=== PATIENT | male | born 1970 | race Caucasian/White ===

== ENCOUNTER 2020-12-01 13:49 | Emergency (ER) | payer MEDICAID ==
[~2020-12-01] VITALS: Ht 157.5 cm; Wt 88.0 kg
[2020-12-01 13:57] VITALS: BP_SYST 160
[2020-12-01] MEDS ORDERED: FAMOTIDINE 20 MG TABLET PO ONE (15:00)
[2020-12-01] MEDS ORDERED: LORATADINE 10 MG TABLET PO ONE (15:00)
[2020-12-01 15:12] VITALS: BP_SYST 160
== END 2020-12-01 15:12 | disposition home or self-care (01) ==
LOC: SED 13:49
DX: L50.9 Urticaria, unspecified (principal)
CPT/HCPCS: 99283